=== PATIENT | male | born 1980 | race Hispanic/Latino ===

== ENCOUNTER 2018-09-24 09:57 | Observation (INO) ==
[2018-09-24] MEDS ORDERED: ASPIRIN 81 MG (BABY) CHEWABLE TABLET PO ONE (10:14)
[2018-09-24] MEDS ORDERED: Sodium Chloride 0.9% 1,000 ML PRIMARY IV ONE (10:14)
--- NOTE | 2018-09-24 10:17 | EKG ---
[address] [address] Measurements Intervals [place] Rate: 96 P: 62 VT: 205 QRS: 26 QRSD: 113 T: 52 QT: 393 QTc: 446 Interpretive Statements SINUS RHYTHM RIGHT ATRIAL ENLARGEMENT MODERATE INTRAVENTRICULAR CONDUCTION DELAY MINIMAL VOLTAGE CRITERIA FOR LVH, ] NONSPECIFIC T-WAVE ABNORMALITY No previous ECG available for comparison Electronically Signed On 09-24-18 12:15:00 MDT by Aron Hernandez [email or web address]
[2018-09-24 10:23] LABS: BASOPHILS # (AUTO) 0.03 10*3/UL; BASOPHILS % (AUTO) 0.2 % (0-1); EOSINOPHILS # (AUTO) 0.12 10*3/UL; Hematocrit [HCT] 49.2 % (42.0-52.0); LYMPHOCYTES # (AUTO) 3.11 10*3/uL; MEAN CORPUSCULAR HEMOGLOBIN 31.2 PG (27-31); MEAN CORPUSCULAR HGB CONC 34.6 g/dL (33-37); MEAN CORPUSCULAR VOLUME 90.3 FL (80-90); MEAN PLATELET VOLUME 10.9 FL (7.4-12.2); NEUTROPHILS # (AUTO) 8.19 10*3/UL; NEUTROPHILS % (AUTO) 67.9 % (50-80); RED BLOOD COUNT 5.45 10^6/uL (4.70-6.10)
[2018-09-24 10:24] LABS: PLATELET MORPHOLOGY COMMENT NORMAL MORPHOLOGY (NORM); RBC MORPHOLOGY COMMENT NORMAL MORPHOLOGY (NORM); WBC MORPHOLOGY COMMENT NORMAL MORPHOLOGY (NORM)
[2018-09-24 10:28] LABS: BLOOD UREA NITROGEN 13 mg/dL (7-22); BUN/CREATININE RATIO 18.57 (6-20); SERUM ALBUMIN 4.6 g/dL (3.5-4.8)
--- NOTE | 2018-09-24 11:28 | DI ---
AP CHEST X-RAY, 09/24/2018 10:14 AM : Clinical History: Chest pain. Previous Exam: None at this facility. Soft Tissues: No acute soft tissue abnormality. Bones: Normal. Heart: Cardiomegaly without CHF. Lungs: No infiltrates. Effusion(s): None. Mediastinum: Normal mediastinum. Nodules: No pulmonary nodules. Readin. No acute infiltrate or effusion. 2. Cardiomegaly without CHF.
[2018-09-24] MEDS ORDERED: AmLODIPine Tab 5 MG TABLET PO ONE (12:12)
[2018-09-24] MEDS ORDERED: CALCIUM CARBONATE 500 MG (TUMS) CHEWABLE TABLET PO PRN (12:19)
[2018-09-24] MEDS ORDERED: LIDOCAINE W/ SODIUM BICARB 0.5 ML SYR SUBD PRN (12:19)
[2018-09-24] MEDS ORDERED: NITROGLYCERIN 0.4 MG SL TAB (BOTTLE OF 3) SL PRN (12:19)
--- NOTE | 2018-09-24 12:26 | PDOC ---
HPI - History of Present Illness Date of Service: 09/24/18 Time of Service: 12:00 Chief Complaint: Chest pain and shortness of breath started today, question passed out today History of Present Illness: This is a 38 years old male with medical history significant for history of hypertension, sleep apnea on CPAP, obesity who presented to the hospital with history of chest pressure felt in the anterior chest that started today. He said that he went to the [place] as he always do in the morning and he parked his truck he felt that he's going to pass out he slumped over according to him couldn't tell me whether he passed out or not then he woke up feeling of pressure in his chest went to his back. he went outside and walked still didn't feel well and then he drove himself to the hospital. In the ER he had blood tests and EKG and was admitted. His d-dimer was 0.6 slightly above the normal. His blood pressure was high when he came in. By the time he came into the floor he was still complaining from some pain in his chest and shortness of breath. It's not severe according to him. Never had these symptoms before. Past Medical History Medical History: 1. History of hypertension. 2. History of sleep apnea on CPAP Surgical History: History of multiple abdominal wall hernia surgeries Pertinent Family History: Mother has diabetes Past Social History: He is smoker 1 pack a day for more than 20 years, presented drinking or drugs. Tobacco Use: Heavy Tobacco Smoker Do you dip or chew tobacco: Yes In the Past 12 Months, Have Used or Abuse Any of the Following Substance: None Alcohol Use: Occasionally Medication / Allergies Home Medications: Home Medications Medication Instructions Recorded Confirmed Type Lisinopril/Hydrochlorothiazide 2 ea PO DAILY 09/24/18 09/24/18 History [Lisinopril-Hctz 20-12.5 mg Tab] Allergies/Adverse Reactions: Allergies Allergy/AdvReac Type Severity Reaction Status Date / Time No Known Allergies Allergy Verified 09/24/18 09:59 Review of Systems - Review of Systems All Systems: Reviewed & No Additional Complaints Except as Stated Exam - Vitals Vital Signs: Vital Signs Temperature 98.3 F Temperature Source Temporal Artery Scan Pulse Rate [Pulse Oximeter] 87 Pulse Rate [Telemetry] 87 Pulse Rate 74 Respiratory Rate 18 Blood Pressure [Left Arm] 187/118 Blood Pressure 164/114 Pulse Ox 98 Oxygen Delivery Method Room Air Height 6 ft Weight 355 lb 9.6 oz - General General Appearance: No Acute Distress, Morbidly Obese - Head Head Exam: Normal Inspection - Eye Eye Exam: POSITIVE: Normal Appearance - ENT ENT Exam: POSITIVE: Normal Exam - Neck Neck Exam: Normal Inspection - Respiratory Respiratory Exam: POSITIVE: Clear to Auscultation - Bilaterally - Cardiovascular Cardiovascular Exam: POSITIVE: RRR - GI/Abdominal GI/Abdominal Exam: POSITIVE: Normal Bowel Sounds, Non Tender, Non Distended, Soft, No Organomegaly - Rectal Rectal Exam: POSITIVE: Deferred - External Exam: POSITIVE: Deferred Exam: POSITIVE: Deferred - Extremities Extremities Exam: POSITIVE: Normal Inspection - Back Back Exam: POSITIVE: Normal Inspection - Neurological Neurological Exam: POSITIVE: Alert, Oriented x 3, CN II-XII Intact, No Facial Droop, Speech Intact / Clear - Psychiatric Psychiatric Exam: POSITIVE: Normal Affect - Integumentary Integumentary Exam: POSITIVE: Normal Color Results - Labs CBC and BMP: 09/24/18 10:00 09/24/18 10:00 - EKG Data -: EKG Interpreted by Me Rate: Normal EKG Shows Normal: Sinus Rhythm - EKG Data EKG Interpretation: Other (EKG showed normal sinus rhythm, incomplete right bundle, no specific ST changes. LVH.) Assessment and Plan - Patient Problems (1) Chest pain Current Visit: Yes Status: Acute Comment: Atypical pain. I think because of the minimal elevation in d-dimer will do a CTA of his chest. Will repeat his enzymes. Unfortunately we can't do a stress test because of his weight so we may consult Dc and see their opinion. Code(s): R07.9 - Chest pain, unspecified (2) Hypertension Current Visit: Yes Status: Acute Comment: Blood pressure is uncontrolled he said he took his medication today. will Give him a dose of amlodipine and then will see his response. Code(s): I10 - Essential (primary) hypertension
--- NOTE | 2018-09-24 13:56 | DI ---
CT ANGIOGRAM OF THE CHEST, 09/24/2018 12:18 PM : Clinical History: Chest pain. Previous Exam: None at this facility. Technique: Scans from base of neck to lung bases with IV contrast. Bolus tracking protocol was used f or timing the injection. Non-MIPS and MIPS sagittal/coronal images generated. IV Contrast: 80 mL of Isovue 300. Technical Limitations: The patient is morbidly obese. This detracts from the overall quality and sign ificantly limits the diagnostic quality of the exam with respect to small structures. This patient ba rely fit in the scan [place] diameter. Base of Neck: Normal. Nodes: Normal axillary, supraclavicular, mediastinal, and hilar lymph nodes. Heart: Marked left atrial enlargement. The myocardium of both ventricles are prominent, consistent wi th hypertrophy.. No coronary artery calcifications. Aorta: Normal thoracic aorta. No aneurysm or dissection. Pulmonary Arteries: Normal. No pulmonary emboli or infarcts; pulmonary arterial hypertension. Lungs: No infiltrates. Effusion(s): None. Nodules: Noncalcified 5 mm nodule abutting the minor fissure. Bony Structures: Normal visualized portions of ribs, sternum, scapulae, clavicles, and shoulders. Nor mal visualized portions of thoracic spine. Limited Upper Abdomen: Normal adrenal glands and spleen. Normal limited views of liver and pancreas. READIN. Technically limited study due to the patient's large body habitus. 2. There is pulmonary arterial hypertension. No pulmonary emboli are seen to third and the larger fo urth order branches. Scan artifacts are visualized throughout the vessels. 3. Probable right and left ventricular hypertrophy. There is marked left atrial enlargement. 4. 5 mm noncalcified nodule near the minor fissure. No followup required unless this patient is a sm oker at which time it would be optional for a followup study in 12 months. 5. Fatty infiltration of the liver.
[2018-09-24] MEDS ORDERED: ALPRAZolam Tab 0.25 MG TABLET PO ONE (14:10)
[2018-09-24] MEDS ORDERED: Potassium Chloride Tab 10 MEQ TAB PO ONE (14:37)
[2018-09-24] MEDS ORDERED: ACETAMINOPHEN 325 MG TABLET PO PRN (18:29)
[2018-09-24] MEDS: ALPRAZolam Tab 0.25 MG TABLET PO PRN (20:45)
[2018-09-24] MEDS: Metoprolol TARTRATE Tab 25 MG TAB PO SCH (20:45)
--- NOTE | 2018-09-24 22:43 | PDOC ---
Chest Pain HPI - General Chief Complaint: Chest Pain Stated Complaint: CHEST PAIN Date Seen by Provider: 09/24/18 Time Seen by Provider: 10:00 Source: Patient Exam Limitations: POSITIVE: No limitations Treatment Prior to Arrival: REPORTS: None Nurse's Notes Reviewed & Considered: Yes - History of Present Illness Initial Comments: The patient is a 38-year-old male. 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 He states he felt very weak and he slumped forward onto his steering wheel, but had no loss of consciousness. No head or abdominal pain. He states he "felt dizzy ". He has a history of hypertension for which she takes lisinopril. He drove himself to the emergency room. She'll morbid obesity and states he weighs 360 pounds. He smokes a pack of cigarettes per day. 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) Severity: Moderate Persistent/Worse since (date): 09/24/18 Persistent/Worse since (time): 06:30 Context: REPORTS: Activity (Sitting in pickup doing written reports) Quality: REPORTS: Pressure, Other (Associated shortness of breath and weakness) Radiation: REPORTS: None Associated Symptoms: REPORTS: Shortness of Breath, Weakness, Dizziness Modifying Factors: improves with: None Reported Similar Symptoms Previously: No Recently seen/treated/hospitalized: No Any Prior Injuries Related to Current Complaint?: No - Patient Home Medications Home Medications: Home Medications Lisinopril/Hydrochlorothiazide [Lisinopril-Hctz 20-12.5 mg Tab] 2 ea PO DAILY 09/24/18 - Patient Allergies Allergies/Adverse Reactions: Allergies Allergy/AdvReac Type Severity Reaction Status Date / Time No Known Allergies Allergy Verified 09/24/18 09:59 Past Medical History - heen HEENT History: Denies History Cardiovascular History: Hypertension Respiratory History: Denies History Gastrointestinal History: Hiatal Hernia Genitourinary History: Denies History Endocrine History: Denies History Musculoskeletal History: Denies History Neurological History: Denies History Blood Disorders: Denies History Psychiatric History: Denies History History of Sexually Transmitted Diseases: No Male Reproductive History: Denies History Cancer History: Denies History In Past Year Been Physically Harmed or Verbally Threatened: No History of MDRO: No Type of MDRO: Other Tobacco Use: Heavy Tobacco Smoker Type of alcohol normally used: Beer In the Past 12 Months, Have Used or Abuse Any Substance: None Previous Surgical History: Yes Type / Date of Surgery: HERNIA REPAIR Anesthesia Reactions: No Malignant Hyperthermia: No Family History of Malignant Hyperthermia: No Significant Family History: No pertinent family hx Past Medical History Reviewed: Reviewed - No Changes ROS - Limitations ROS Limitations: No Limitations Constitution: REPORTS: Weakness Cardiovascular: REPORTS: Chest Pain Respiratory: REPORTS: Shortness Of Breath Neurological: REPORTS: Dizziness, Weakness Gastrointestinal: REPORTS: Denies GI Symptoms Endocrine: REPORTS: Denies Symptoms Musculoskeletal: REPORTS: Denies MS Symptoms Genitourinary: REPORTS: Denies Symptoms Eyes: REPORTS: Denies Symptoms ENT: REPORTS: Denies Symptoms Skin: REPORTS: Denies Skin Symptoms Lympathic: REPORTS: Denies Lympathic Symptoms Immunologic: POSITIVE: Denies Symptoms Psychiatric: POSITIVE: Denies Psych Symptoms Chest Pain PE - General Appearance General Appearance: REPORTS: Alert, Cooperative, No Acute Distress, No Evidence of Trauma - HEENT HEENT: POSITIVE: Head Inspection Nml, Eyes Inspection Nml, Ears Inspection Nml, Nose Inspection Nml, Oral/Dental Inspect. Nml, Pharynx Inspect. Nml, PERRL, EOMI - Neck Neck: REPORTS: Normal Inspection, No Carotid Bruit - Respiratory Respiratory: REPORTS: No Respiratory Distress, Breath Sounds Normal, Chest Non- Tender - Cardiovascular Cardiovascular: REPORTS: Regular Rate and Rhythm, Heart Sounds Normal, Equal Pul ses, Strong Pulses, No Murmur, No Gallop, No Friction Rub, No JVD Peripheral Pulses: Radial (R): 2+, Radial (L): 2+ - Abdomen Abdomen: Soft: (All Quadrants), Normal Bowel Sounds: (All Quadrants), Denies Tenderness: (All Quadrants), No Splenomegaly: (All Quadrants), No Hepatomegaly: (All Quadrants), No Guarding: (All Quadrants), No Rebound: (All Quadrants), No Palpable Pulse: (All Quadrants), No Palpabale Mass: (All Quadrants), No Di stention: (All Quadrants), No Rigidity: (All Quadrants) - Skin Skin: REPORTS: Intact, Normal For Race, Warm, Dry, No Rash - Extremities Extremity: Non-Tender: (All Extremities), Normal ROM: (All Extremities), Normal Inspection: (All Extremities) - Neurological / Psychological Neurological: POSITIVE: Affect 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, 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, 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 As Tested, Motor Normal, Sensation Normal Images - Complete Complete: 1 - "Pressure" Chest Pain Progress - Results Reviewed by me Xrays/CTs/US Reviewed by me: Yes Discussed with Radiologist: No Radiology Findings: Chest x-ray normal by my interpretation; radiologist interpretation pending Lab Results Reviewed by Me: Yes CBC and BMP: 09/24/18 10:00 09/24/18 10:00 Lab Results:: Laboratory Results 09/24/18 09/24/18 09/24/18 10:00 10:00 10:00 WBC 12.08 H RBC 5.45 Hgb 17.0 Hct 49.2 MCV 90.3 H MCH 31.2 H MCHC 34.6 RDW Std Deviation 45.1 RDW Coeff of Vinicio 13.6 Plt Count 260 MPV 10.9 Immature Gran % (Auto) 0.2 Neut % (Auto) 67.9 Lymph % (Auto) 25.7 [place] % (Auto) 5.0 Eos % (Auto) 1.0 Baso % (Auto) 0.2 Immature Gran # (Auto) 0.03 Neut # (Auto) 8.19 Lymph # (Auto) 3.11 [place] # (Auto) 0.60 Eos # (Auto) 0.12 Baso # (Auto) 0.03 WBC Morphology Comment Normal morphology Plt Morphology Comment Normal morphology RBC Morph Comment Normal morphology D-Dimer 0.60 H Sodium 139 Potassium 3.6 L Chloride 100 Carbon Dioxide 27 Anion Gap 12 BUN 13 Creatinine 0.7 Estimated GFR > 60 BUN/Creatinine Ratio 18.57 Glucose 100 Calculated Osmolality 287.0 Calcium 10.1 Total Bilirubin 0.4 AST 37 ALT 38 Alkaline Phosphatase 98 CK-MB (CK-2) Troponin I Total Protein 7.9 Albumin 4.6 Globulin 3.2 Albumin/Globulin Ratio 1.40 04/12/19 10:00 WBC RBC Hgb Hct MCV MCH MCHC RDW Std Deviation RDW Coeff of Vinicio Plt Count MPV Immature Gran % (Auto) Neut % (Auto) Lymph % (Auto) [place] % (Auto) Eos % (Auto) Baso % (Auto) Immature Gran # (Auto) Neut # (Auto) Lymph # (Auto) [place] # (Auto) Eos # (Auto) Baso # (Auto) WBC Morphology Comment Plt Morphology Comment RBC Morph Comment D-Dimer Sodium Potassium Chloride Carbon Dioxide Anion Gap BUN Creatinine Estimated GFR BUN/Creatinine Ratio Glucose Calculated Osmolality Calcium Total Bilirubin AST ALT Alkaline Phosphatase CK-MB (CK-2) 1.75 Troponin I 0.024 Total Protein Albumin Globulin Albumin/Globulin Ratio EKG Interpreted/Reviewed By Me:: Yes (electrocardiogram normal) EKG Interpretation:: POSITIVE: Normal Sinus Rhythm, Normal Rate, Normal Intervals, Normal [place], Normal QRS, Normal ST/T - Patient's Progress Pain Medication Addressed: POSITIVE: No (Chest pressure resolved) School/Work Release Addressed: POSITIVE: Not Applicable Re-Examine Time: 11:10 Re-Examine Comment: Patient feeling better on discharge. Patient advised of results of electrocardiographic, radiologic and laboratory studies. Status: POSITIVE: Improved, Re-Examined Quality Measure Initiative: CP/AMI: POSITIVE: EKG, ASA - Consult Consult (If Yes, Name of Consulting MD & Time Called): Yes (Dr. Leon, hospitalist, [id number]) Consulting MD will see pt:: POSITIVE: [facility] Admit Counseled: POSITIVE: Patient, RE: Lab Results, RE: Radiology Results, RE: DX, RE: Need for F/U Patient Care Time - Estimated PCT Patient Care Time (In Minutes): 45 Vital Signs - VS Reviewed Vital Signs Reviewed: Yes Discharge Clinical Impression: Chest pain, Dyspnea Discharge Disposition: Admit to Inpatient Condition: Stable Date Decision to Admit to Inpatient: 09/24/18 Time Decision to Admit to Inpatient: 11:10
[2018-09-25 04:51] LABS: BASOPHILS # (AUTO) 0.04 10*3/UL; BASOPHILS % (AUTO) 0.4 % (0-1); EOSINOPHILS # (AUTO) 0.19 10*3/UL; Hematocrit [HCT] 43.9 % (42.0-52.0); Hemoglobin [HGB] 15.2 g/dL (14.0-18.0); LYMPHOCYTES # (AUTO) 3.15 10*3/uL; MEAN CORPUSCULAR HEMOGLOBIN 31.3 PG (27-31); MEAN CORPUSCULAR HGB CONC 34.6 g/dL (33-37); MEAN CORPUSCULAR VOLUME 90.3 FL (80-90); MONOCYTES # (AUTO) 0.56 10*3/UL (0.3-0.8); MONOCYTES % (AUTO) 5.8 % (5-15); RED BLOOD COUNT 4.86 10^6/uL (4.70-6.10)
[2018-09-25 05:05] LABS: PLATELET MORPHOLOGY COMMENT NORMAL MORPHOLOGY (NORM); RBC MORPHOLOGY COMMENT NORMAL MORPHOLOGY (NORM); WBC MORPHOLOGY COMMENT NORMAL MORPHOLOGY (NORM)
[2018-09-25 05:46] LABS: CHOL/HDL RATIO 4.64 RATIO (0-4.0)
[2018-09-25] MEDS ORDERED: HYDROCHLOROTHIAZIDE 25 MG TABLET PO SCH (07:00)
[2018-09-25] MEDS: ALPRAZolam Tab 0.25 MG TABLET PO PRN (07:08)
--- NOTE | 2018-09-25 07:57 | DCSUMMARY ---
Hospitalization Summary Admit Date: 09/24/2018 Discharge Date: 09/25/18 Hospital Course: Transfer diagnoses 1. Persistent chest pain unclear etiology 2. Question of a syncope 3. Uncontrolled blood pressure 4. History of sleep apnea 5. Morbid obesity 6. History of multiple abdominal wall hernia surgeries 7. LVH 8. Marked left atrial enlargement Hospital course This is a 38 years old male with medical history significant for history of hypertension, sleep apnea on CPAP, morbid obesity who presented to the hospital with history of chest pressure felt in the anterior chest that started the day of admission. 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 He woke up with feeling of pressure in the chest that went to his back. He went outside and walked still didn't feel well and then he drove himself to the hospital. In the ER he had blood tests and EKG and was admitted. His blood pressure was high when he came in to the ER blood pressure was 187/118. By the time he came into the floor he was complaining from pain in his chest. We did give him a dose of for Norvasc. We put him on the metoprolol also. We did repeat his enzymes his troponin remained the indeterminant range between 0.02-0.024, his EKG showed LVH. We did a CTA of his chest there was no evidence of PE, there is marked left atrial enlargement right and left ventricular hypertrophy. The next day he continued to complain from persistent pain in the chest feeling the same not improving we couldn't do a nuclear stress test for him because of his size. I did speak with the cut to length operator Dr. Forbes who accepted him for further testing and investigation for his persistent chest pain and possible syncope. Patient will be transferred today. Transfer instruction Diet regular Activity as tolerated Medications Active Medications Acetaminophen (Tylenol) 650 mg PO Q6H PRN PRN Reason: Pain Alprazolam (Xanax Tab) 0.25 mg PO TID PRN PRN Reason: Anxiety Last Admin: 09/25/18 07:08 Dose: 0.25 mg Documented by: Amlodipine Besylate (Norvasc) 5 mg PO DAILY [facility] Aspirin (Aspirin Ec) 325 mg PO DAILY [facility] Calcium Carbonate (Tums) 1 - 2 tab PO QID PRN PRN Reason: Heartburn Hydrochlorothiazide (Hydrodiuril) 25 mg PO DAILY@0700 [facility] Sodium Chloride (Normal Saline 0.9%) 25 mls @ 200 mls/hr IV .Post Infusion PRN PRN Reason: Flush Lidocaine HCl (Lidocaine Buffered Inj) 0.5 ml SUBD ONCE PRN PRN Reason: IV Starts Lisinopril (Prinivil) 40 mg PO DAILY [facility] Metoprolol Tartrate (Lopressor Tab) 25 mg PO BID [facility] Last Admin: 09/24/18 20:45 Dose: 25 mg Documented by: Nitroglycerin (Nitrostat Sl 0.4mg Tab) 1 tab SL Q5M PRN PRN Reason: Chest Pain Last Admin: 09/25/18 07:08 Dose: 1 tab Documented by: Follow-up per [facility] [place] post discharge Condition at transfer stable for transfer Exam - Vitals Vital Signs: Vital Signs Temperature 97.2 F Temperature Source Temporal Artery Scan Pulse Rate [Pulse Oximeter] 66 Pulse Rate [Telemetry] 71 Pulse Rate 56 Respiratory Rate 12 Blood Pressure [Right Arm] 154/101 Blood Pressure [Left Arm] 134/89 Blood Pressure 164/114 Pulse Ox 99 Oxygen Flow Rate 2 Oxygen Delivery Method Nasal Cannula Height 6 ft Weight 355 lb 9.6 oz - General General Appearance: No Acute Distress, Cooperative, Morbidly Obese - Head Head Exam: Normal Inspection - Eye Eye Exam: POSITIVE: Normal Appearance - ENT ENT Exam: POSITIVE: Normal Exam - Neck Neck Exam: Normal Inspection - Respiratory Respiratory Exam: POSITIVE: Clear to Auscultation - Bilaterally - Cardiovascular Cardiovascular Exam: POSITIVE: RRR - GI/Abdominal GI/Abdominal Exam: POSITIVE: Normal Bowel Sounds, Non Tender, Non Distended, Soft, No Organomegaly - Rectal Rectal Exam: POSITIVE: Deferred - External Exam: POSITIVE: Deferred - Extremities Extremities Exam: POSITIVE: Normal Inspection - Back Back Exam: POSITIVE: Normal Inspection - Neurological Neurological Exam: POSITIVE: Alert, Oriented x 3, CN II-XII Intact, No Facial Droop, Speech Intact / Clear - Psychiatric Psychiatric Exam: POSITIVE: Flat Affect - Integumentary Integumentary Exam: POSITIVE: Normal Color Patient Problems - Patient Problem List (1) Chest pain Current Visit: Yes Status: Acute Code(s): R07.9 - Chest pain, unspecified Category: Medical (2) Hypertension Current Visit: Yes Status: Acute Code(s): I10 - Essential (primary) hypertension Category: Medical
[2018-09-25] MEDS: Metoprolol TARTRATE Tab 25 MG TAB PO SCH (08:20)
[2018-09-25] MEDS ORDERED: LISINOPRIL 20 MG TABLET PO SCH (09:00)
[2018-09-25] MEDS ORDERED: HYDROCHLOROTHIAZIDE PO SCH (09:00)
[2018-09-25] MEDS ORDERED: ASPIRIN 325 MG EC TABLET PO SCH (09:00)
[2018-09-25] MEDS ORDERED: AmLODIPine Tab 5 MG TABLET PO SCH (09:00)
[2018-09-25] MEDS ORDERED: LISINOPRIL PO SCH (09:00)
[2018-09-25] MEDS ORDERED: [UNRECOGNIZED DRUG - OTHER] PO SCH (09:00)
[2018-09-25 12:26] VITALS: BP 115/68; RESP 16; TEMP 97.6; O2SAT 95
== END 2018-09-25 12:45 | disposition short-term general hospital (02) ==
LOC: MED/SURG 09:57 → ER 09:57 → MED/SURG 11:55
PROVIDERS: ADMIT Internal Medicine; ATTEND Internal Medicine